=== PATIENT | female | born 1990 | race Caucasian/White ===

== ENCOUNTER → 2017-06-13 | Outpatient (CLI) | payer BC ==
[2017-06-13 16:39] LABS: BASO % 0.6 % (0.0-2.0); EOS # 0.2 (0.0-0.7); EOS % 3.1 % (0-4.0); GRAN # 4.1 (1.4-6.5); GRAN % 62.6 % (42.2-75.2); HEMOGLOBIN 12.1 g/dl (12.5-16.0); LYMPH # 1.8 (1.2-3.4); LYMPH % 28.4 % (20.0-51.0); MEAN CELL VOLUME 87 fl (80.0-100.0); MEAN CORPUSCULAR HEMOGLOBIN 29 pg (27.0-31.0); MEAN CORPUSCULAR HGB CONC 33 g/dl (33.0-37.0); MEAN PLATELET VOLUME 10.7 fl (7.4-10.4); MONO # 0.3 (0.1-0.6); MONO % 5.1 % (1.7-9.3); PLATELET COUNT 233 K/mm3 (130-400); RED BLOOD COUNT 4.18 M/mm3 (4.10-5.30); REDCELL DISTRIBUTION WIDTH-CV 13.3 % (11.5-14.5)
[2017-06-13 16:40] LABS: HEMATOCRIT 36.3 % (37.0-47.0)
== END ==
LOC: COL.LAB 15:55
PROVIDERS: Family Medicine
DX: N92.1 Excessive and frequent menstruation with irregular cycle (principal)

== ENCOUNTER 2020-01-02 17:53 | Emergency (ER) | payer OTHER ==
[~2020-01-02] VITALS: Ht 167.6 cm; Wt 70.5 kg
[2020-01-02 17:57] VITALS: TEMP 98.4
[2020-01-02] MEDS ORDERED: PERCOCET 325 MG1 TA2 PO (21:17)
[2020-01-02 21:53] VITALS: BP 124/74; PULSE 99
== END 2020-01-02 21:36 | disposition home or self-care (01) ==
LOC: COL.ER 17:53
DX: O9A.211 Injury, poisoning and certain other consequences of external causes complicating pregnancy, first trimester (principal); M84.421A Pathological fracture, right humerus, initial encounter for fracture; Z3A.12 12 weeks gestation of pregnancy; X50.9XXA Other and unspecified overexertion or strenuous movements or postures, initial encounter
CPT/HCPCS: J2250; J3010; J7030

== ENCOUNTER → 2020-01-09 | Outpatient (CLI) | payer OTHER ==
[~2020-01-09] MED LIST: CEPHALEXIN500 M1 PO; LEADER CLE17 GM/Dose PO; PERCOCET 325 MG1 TA2 PO; PHENERGAN 25 TA25 MG PO; ROXICODONE 55 MG/TAB PO
== END ==
LOC: COL.LAB 09:38
DX: Z20.828 Contact with and (suspected) exposure to other viral communicable diseases (principal)

== ENCOUNTER 2020-01-15 23:24 | Emergency (ER) | payer OTHER ==
[~2020-01-15] VITALS: Ht 167.6 cm; Wt 69.5 kg
[~2020-01-15 23:24] MED LIST changes: -CEPHALEXIN500 M1 PO; -LEADER CLE17 GM/Dose PO; -PHENERGAN 25 TA25 MG PO; -ROXICODONE 55 MG/TAB PO
[2020-01-15 23:42] VITALS: TEMP 98
[2020-01-15] MEDS ORDERED: LEADER CLE17 GM/Dose PO (23:49)
[2020-01-15] MEDS ORDERED: ROXICODONE 55 MG/TAB PO (23:49)
[2020-01-16 00:21] LABS: COLLECTION METHOD CLEAN CATCH
[2020-01-16 00:28] LABS: PH 7 (5-8); SQUAMOUS EPITHELIAL 0-2 /hpf; URINE APPEARANCE Hazy; URINE BACTERIA Moderate /hpf; URINE BILIRUBIN Negative (NEGATIVE); URINE BLOOD Negative (NEGATIVE); URINE COLOR Yellow; URINE GLUCOSE Negative (NEGATIVE); URINE KETONE 1+ (NEGATIVE); URINE LEUKOCYTE ESTERASE Negative (NEGATIVE); URINE NITRATE Negative (NEGATIVE); URINE PROTEIN(semi-quant) Negative (NEGATIVE); URINE RBC 0-2 /hpf
[2020-01-16 00:32] LABS: BASO % 0.2 % (0.0-2.0); EOS # 0.1 (0.0-0.7); EOS % 0.5 % (0-4.0); GRAN # 7.7 (1.4-6.5); GRAN % 75.4 % (42.2-75.2); HEMATOCRIT 27.8 % (37.0-47.0); HEMOGLOBIN 9.4 g/dl (12.5-16.0); LYMPH # 1.6 (1.2-3.4); LYMPH % 15.4 % (20.0-51.0); MEAN CELL VOLUME 85 fl (80.0-100.0); MEAN CORPUSCULAR HEMOGLOBIN 29 pg (27.0-31.0); MEAN CORPUSCULAR HGB CONC 34 g/dl (33.0-37.0); MEAN PLATELET VOLUME 10.1 fl (7.4-10.4); MONO # 0.8 (0.1-0.6); MONO % 7.6 % (1.7-9.3); PLATELET COUNT 206 K/mm3 (130-400); RED BLOOD COUNT 3.28 M/mm3 (4.10-5.30); REDCELL DISTRIBUTION WIDTH-CV 13.4 % (11.5-14.5)
[2020-01-16 00:38] LABS: ALBUMIN 3.8 gm/dL (3.5-5.0); BILIRUBIN,TOTAL 0.8 mg/dL (0.0-1.0); CALCIUM 9.5 mg/dL (8.4-10.2); CREATININE, serum 0.4 (0.52-1.25); POTASSIUM 3.7 mmol/L (3.4-5.0); TOTAL PROTEIN 7.2 gm/dL (6.4-8.2)
[2020-01-16] MEDS ORDERED: CEPHALEXIN500 M1 PO (02:11)
[2020-01-16] MEDS ORDERED: PHENERGAN 25 TA25 MG PO (02:11)
[2020-01-16 02:19] VITALS: BP 108/68; PULSE 100
== END 2020-01-16 02:31 | disposition home or self-care (01) ==
LOC: COL.ER 23:24
PROVIDERS: Emergency Medicine
DX: O23.41 Unspecified infection of urinary tract in pregnancy, first trimester (principal); O21.9 Vomiting of pregnancy, unspecified; Z20.828 Contact with and (suspected) exposure to other viral communicable diseases; Z3A.13 13 weeks gestation of pregnancy
CPT/HCPCS: J0696; J2405; J7030

== ENCOUNTER 2020-07-15 18:46 | Inpatient (IN) | payer OTHER ==
[~2020-07-15] VITALS: Ht 165.1 cm; Wt 85.0 kg
[~2020-07-15 18:46] MED LIST changes: +CEPHALEXIN500 M1 PO; +LEADER CLE17 GM/Dose PO; +PHENERGAN 25 TA25 MG PO; +ROXICODONE 55 MG/TAB PO
--- NOTE | 2020-07-15 18:55 | NUR ---
Ambulatory to unit for labor assessment, accompanied by spouse. Oriented to room, monitor, plan of care. 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 They started again at 2pm and they are 6-8 min apart."
[2020-07-15 19:10] VITALS: BP 137/76; PULSE 102
[2020-07-15] MEDS ORDERED: PRENATAL TABLET PO (19:41)
--- NOTE | 2020-07-15 20:00 | NUR ---
Pt and spouse with multiple questions about contractions and if the go home "how will we know when to come back? The nurse @ [facility] told us to come in if contractions were 5 min apart. Why do I/she need to dilate if she's going to have a C/S/" Reviewed 39 wk initiaive and importance to not intervene prior to 39 wks unless laboring, SROM, intolerance. Spouse asks "even if 39wks is on Sunday?" explained that even a few days for the baby can make a big difference. Pt asks "would I have to go home and just be in pain? what would I have for pain?" Explained to pt that I would recheck her cervix and if she is discharged home I will give her instructions"
[2020-07-15 20:40] VITALS: BP 128/78; PULSE 104
--- NOTE | 2020-07-15 20:40 | NUR ---
Pt reports contractions "getting much worse, closer, more in my back" SVE with slight change noted, Pt tolerated exam poorly, tolerating contractions poorly.
--- NOTE | 2020-07-15 21:30 | NUR ---
Tylenol 1000mg po per pt request "help the pain"
[2020-07-15 22:00] VITALS: BP 132/84; PULSE 92
--- NOTE | 2020-07-15 22:25 | NUR ---
Dr Orellana into room, reviews plan of care for C/S questions invited and answered.
[2020-07-15 23:15] VITALS: BP 134/65; PULSE 93
[2020-07-15 23:40] VITALS: BP 123/69; PULSE 94
[2020-07-16] VITALS (18 sets, daily range): BP systolic 100–144; BP diastolic 50–96; PULSE 87–101; TEMP 98–98.8
--- NOTE | 2020-07-16 00:45 | NUR ---
Off monitor, to C/S room. Tearful, anxious. Emotional support provided.
[2020-07-16 01:07] LABS: BASO % 0.3 % (0.0-2.0); EOS % 0.3 % (0-4.0); GRAN # 7.7 (1.4-6.5); GRAN % 78.9 % (42.2-75.2); HEMATOCRIT 37.7 % (37.0-47.0); HEMOGLOBIN 12.5 g/dl (12.5-16.0); LYMPH # 1.4 (1.2-3.4); LYMPH % 13.9 % (20.0-51.0); MEAN CELL VOLUME 87 fl (80.0-100.0); MEAN CORPUSCULAR HEMOGLOBIN 29 pg (27.0-31.0); MEAN CORPUSCULAR HGB CONC 33 g/dl (33.0-37.0); MEAN PLATELET VOLUME 12.1 fl (7.4-10.4); MONO # 0.6 (0.1-0.6); MONO % 5.6 % (1.7-9.3); PLATELET COUNT 204 K/mm3 (130-400); RED BLOOD COUNT 4.32 M/mm3 (4.10-5.30)
--- NOTE | 2020-07-16 10:36 | NUR ---
Initial visit; Parents thanked [employer] for offering congratulations and God's blessings for the of their daughter. [employer] thanked family for choosing [facility].
--- NOTE | 2020-07-16 12:00 | NUR ---
Ambulates to the bathroom. Trivedi catheter taken out, syl care given. Abdominal binder on. [place] up at the sink. Back to bed. Denies wanting any pain medication at this time.
--- NOTE | 2020-07-16 14:30 | NUR ---
Rests in bed, alert. Request pain medication. Tylenol 650 mg given as ordered and per request\
[2020-07-17 08:53] VITALS: BP 104/73; PULSE 80; TEMP 97.5
--- NOTE | 2020-07-17 10:00 | NUR ---
refuses COVID 19 testing
[2020-07-17 16:20] VITALS: BP 121/75; PULSE 96; TEMP 97.7
[2020-07-17 19:00] VITALS: BP 133/82; PULSE 91; TEMP 98.8
[2020-07-18 07:00] VITALS: BP 124/73; PULSE 76; TEMP 97.7
[2020-07-18] MEDS ORDERED: IBU800 M1 PO (10:46)
[2020-07-18] MEDS ORDERED: PERCOCET 325 MG1 TA2 PO (10:46)
--- NOTE | 2020-07-18 13:20 | NUR ---
Patient given discharge instructions. Denies questions.
== END 2020-07-18 13:25 | disposition home or self-care (01) | DRG 788 ==
LOC: LDR 18:46 → LDRO 18:46 → LDR 22:20 → OB 22:20
PROVIDERS: Obstetrics & Gynecology; ADMIT Obstetrics & Gynecology
PROC: 10D00Z1 Extraction of Products of Conception, Low, Open Approach (ICD-10-PCS; principal; 2020-07-16)
DX: O82 Encounter for cesarean delivery without indication (principal); Z3A.38 38 weeks gestation of pregnancy; Z37.0 Single live birth
CPT/HCPCS: OP; J0595; J0690; J1100; J1885; J2590; J7120